=== PATIENT | male | born 1995 | race Caucasian/White ===

== ENCOUNTER 2017-11-13 23:10 | Emergency (ER) | payer SELFPAY ==
[~2017-11-13] VITALS: Ht 185.4 cm; Wt 94.0 kg
[2017-11-13 23:15] VITALS: BP 114/75
== END 2017-11-14 01:41 | disposition left against medical advice (07) ==
LOC: EME 23:10
DX: R51 Headache (principal); H53.8 Other visual disturbances; Z73.3 Stress, not elsewhere classified; Z53.21 Procedure and treatment not carried out due to patient leaving prior to being seen by health care provider